=== PATIENT | male | born 1950 | race Caucasian/White ===

== ENCOUNTER 2023-12-28 07:51 | Inpatient (IN) | payer MEDICARE, BC ==
[2023-12-28] MEDS ORDERED: LIDOCAINE 1% INJ 10MG/ML (20 ML MDV) ONE (12:17)
[2023-12-28] MEDS ORDERED: VERAPAMIL 2.5 MG/ML 2 ML AMP ONE (12:17)
[2023-12-28] MEDS ORDERED: HEPARIN SODIUM 1,000 UN/ML (10ML VL) ONE (12:17)
[2023-12-28] MEDS ORDERED: fentaNYL (PF) 50 MCG/ML 2 ML AMP ONE (12:17)
[2023-12-28] MEDS: LIDOCAINE 2% (PF) 20 MG/ML 5 ML VIAL SQ ONE (12:36)
[2023-12-28] MEDS: fentaNYL (PF) 50 MCG/1 ML VIAL IVP ONE (12:36)
[2023-12-28] MEDS: HEPARIN SODIUM 1,000 UN/ML (10ML VL) IVP ONE ×2 (12:40→12:52)
[2023-12-28] MEDS: MIDAZOLAM 2 MG/2 ML VIAL IVP ONE (12:54)
[2023-12-28] MEDS: TICAGRELOR 90 MG TAB PO ONE (12:57)
[2023-12-28] MEDS ORDERED: TICAGRELOR 90 MG TAB ONE (12:57)
[2023-12-28] MEDS: NITROGLYCERIN 1000MCG/10ML SYRINGE INTRACORON ONE (13:00)
[2023-12-28] MEDS: IOPAMIDOL-370 100ML BTL INTRATHECA ONE (13:21)
[2023-12-28] MEDS: SODIUM CHLORIDE 0.9% 1,000 ML IV ONE (13:29)
[2023-12-28] MEDS ORDERED: ZOLPIDEM 5 MG TAB PO PRN (13:50)
[2023-12-28] MEDS ORDERED: ATROPINE SULFATE 0.1 MG/ML 10ML SYRINGE IV PRN (13:50)
[2023-12-28] MEDS ORDERED: NITROGLYCERIN SL TABS 0.4 MG TAB SUBLINGUAL PRN (13:50)
[2023-12-28] MEDS ORDERED: RX INFO: IV CONTRAST WAS GIVEN 1 EACH MISC MISCELLANE PRN (13:50)
[2023-12-28] MEDS ORDERED: MAG HYDROX/AL HYDROX/SIMETH 30 ML CUP PO PRN (13:50)
--- NOTE | 2023-12-28 14:02 | P.CARDCATH ---
Date of Procedure: 12/28/23 Description of Procedure: Cardiac Catheterization: The patient is a 73-year-old male with a known history of chronic tobacco use, hypertension who presented to [facility] with symptoms of chest discomfort and evidence of non-STEMI. His baseline EKG showed left bundle branch block of unknown duration. Recommendations were made regarding cardiac catheterization, the risks and the complications were discussed with the patient who is in full understanding and agreement. 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 Using Xylocaine Anesthesia and modified Seldinger technique, a 6-[place] sheath was introduced in the right radial artery . Subsequently, selective coronary angiography was performed using a 5-[place] 3.5 bend Munira catheter. Multiple views of the coronary artery including hemiaxial views were obtained. The right Munira catheter was used to cross the aortic valve and LVEDP was calculated. PCI: After removing the catheter a 6 [place] CLS 3.5 guiding catheter was introduced into the system and after cannulating the left main 0.014 BMW J-wire was positioned in the distal left circumflex. Subsequently a 2.5 x 12 mm trek balloon was advanced and 2 inflations at 8 josesito were performed after removing the balloon a [place] eye IVUS catheter was introduced and imaging were obtained that revealed a noncalcified lesion with a landing zone of 3 mm in diameter. After removing the catheter a 3.0 x 18 mm Xience esvin point stent was advanced and deployed at 16 josesito. Repeat IVUS was performed and subsequently a 3.0 x 15 mm NC trek balloon was advanced and 1 inflation at 10 josesito was done. After removing the balloon and the wire images were obtained and revealed stable successful stenting. Following that, catheter and sheath were removed. He mostasis was obtained with deployment of vascular band . There was no immediate complication. Patient was returned to room in stable condition. Of note, the patient received a total of 6500 units of intravenous heparin as well as intra- arterial verapamil. He received a loading dose of Brilinta. He had chest discomfort and EKG changes that resolved at the end of the procedure. His ACT was monitored. Findings: Fluoroscopy: Severe calcification of the LAD was noted Left main: This is a short size vessel, bifurcating into LAD and left circumflex, left main has no obstructive disease. LAD: This is a large size vessel reaching to the apex, giving rise to a small diagonal branch proximally. The LAD proximally has 20 to 30% plaque. In the midsegment has a 50% plaque, the diagonal branch has diffuse intimal disease with a area of stenosis up to 90% but it is of small caliber. Left circumflex: This is a large dominant vessel, giving rise to 2 obtuse marginal branch and distally giving rise to a PDA and a PLV. The left circumflex in the distal segment has an 80% eccentric lesion. The second obtuse marginal branch has intimal disease of 40 to 50%. The rest of the vessel has no high-grade stenosis RCA: This is a small nondominant vessel giving rise to a large conus branch. The right coronary artery and mid segment after the takeoff of the acute marginal branch has a 90% stenosis, the vessel beyond that is small in caliber. Left Ventriculogram: Not performed Hemodynamics: There was no gradient across aortic valve, LVEDP was 18-20 mmHg Conclusion: 1. Calcified LAD 2. Severe stenosis in the distal left circumflex 3. Severe stenosis in a small nondominant RCA 4. Mild to moderate disease in the LAD with significant stenosis in the small diagonal branch 5. Successful stenting of the distal LAD with reduction of stenosis from 80% to 0%. Recommendations: The patient will continue on aspirin and Brilinta without any interruption for 1 year in addition to aggressive coronary risks modification, maintaining LDL below 70 mg/dL. The importance of smoking cessation was discussed with him and his family. The findings and the recommendations were discussed with the patient and the family and they were in full understanding and agreement. Duration of sedation is 42 minutes.
[2023-12-28] MEDS: METOPROLOL TARTRATE 25 MG TAB PO SCH (15:05)
[2023-12-28] MEDS: SODIUM CHLORIDE 0.9% 1,000 ML in EMPTY BAG 1 BAG IV SCH (15:06)
[2023-12-28] MEDS: lisinopriL 5 MG TAB PO SCH (21:24)
[2023-12-28] MEDS: ATORVASTATIN 80 MG TAB PO SCH (21:24)
[2023-12-28] MEDS: IPRATROPIUM-ALBUTEROL 3 ML NEB INHALATION SCH (21:24)
[2023-12-28] MEDS: TICAGRELOR 90 MG TAB PO SCH (21:24)
[2023-12-28 22:42] LABS: Chol/HDL Ratio 4.85 Ratio; LDL Cholesterol,Calculated 162.9 mg/dL (0.0-131.0); VLDL Calculation 17.26 mg/dL (5.00-40.00)
--- NOTE | 2023-12-29 00:41 | HP ---
HISTORY AND PHYSICAL HISTORY OF PRESENT ILLNESS: A 73-year-old white male came into the hospital, transferred from [facility] with positive STEMI. He was found to have on cardiac catheterization 3-vessel obstruction, for which the LAD was fixed with a stent. The other two will be watched and treated medically with Brilinta and aspirin for a year, atorvastatin. Hypertension controlled. Smoke cessation, etc. PAST MEDICAL HISTORY: He has not seen a doctor in years. Apparently, he used to take 2 medicines at home normally being in amlodipine. SOCIAL HISTORY: A pack a day for 50 years. PHYSICAL EXAMINATION: VITAL SIGNS: Reviewed. CARDIOVASCULAR: S1, S2. LUNGS: Transmitted upper sounds. GI: Soft. HEMATOLOGIC: Negative Homans. ASSESSMENT: He has coronary artery disease, status post stent multiple, severe chronic obstructive pulmonary disease, nicotine addiction, gastroesophageal reflux disease. Prognosis guarded. Risk factor modifications. He will be sent home on medications tomorrow probably if he does well overnight. Prognosis guarded. MMODL / IJN: [id number] /
[2023-12-29] MEDS: ASPIRIN 81 MG PO SCH (08:04)
--- NOTE | 2023-12-29 11:28 | CA ---
Transthoracic Echo Report Name: Francisco Nj Age: 73 Gender: M : 1950 Exam Date: 12/29/2023 09:34 Exam Location: [facility] Ht (in): 67 Wt (lb): 138 Ordering Physician: Aimee Cabral MD ([id number]) Attending/Referring Phys: Compound Worker Lorraine Babin RDCS Procedure CPT: Indications: PR Cardiac Hx: Technical Quality: Good Contrast 1: Total Dose (mL): Contrast 2: Total Dose (mL): MEASUREMENTS (Male / Female) Normal Values 2D ECHO LV Diastolic Diameter PLAX 3.9 cm 4.2 - 5.9 / 3.9 - 5.3 cm LV Systolic Diameter PLAX 3.3 cm IVS Diastolic Thickness 0.8 cm 0.6 - 1.0 / 0.6 - 0.9 cm LVPW Diastolic Thickness 1.0 cm 0.6 - 1.0 / 0.6 - 0.9 cm LV Relative Wall Thickness 0.5 RV Internal Dim ED PLAX 2.4 cm LVOT Diameter 2.0 cm Aortic Root Diameter 3.0 cm LV Diastolic Volume MOD BP 117.2 cm??? 67 - 155 / 56 - 104 cm??? LV Systolic Volume MOD BP 75.4 cm??? 22 - 58 / 19 - 49 cm??? LV Ejection Fraction MOD BP 35.7 % >= 55 % LV Cardiac Index MOD BP 1580.1 cm???/min???m??? LV Diastolic Volume MOD 4C 108.6 cm??? LV Systolic Volume MOD 4C 82.5 cm??? LV Ejection Fraction MOD 4C 24.0 % LV Cardiac Index MOD 4C 984.2 cm???/min???m??? LV Diastolic Length 4C 9.0 cm LV Systolic Length 4C 8.2 cm LV Diastolic Volume MOD 2C 117.9 cm??? LV Systolic Volume MOD 2C 67.9 cm??? LV Ejection Fraction MOD 2C 42.4 % LV Cardiac Index MOD 2C 1889.7 cm???/min???m??? LV Diastolic Length 2C 9.7 cm LV Systolic Length 2C 8.3 cm DOPPLER AV Peak Velocity 120.2 cm/s AV Peak Gradient 5.8 mmHg AV Mean Velocity 95.7 cm/s AV Mean Gradient 3.9 mmHg AV Velocity Time Integral 25.8 cm LVOT Peak Velocity 95.4 cm/s LVOT Peak Gradient 3.6 mmHg LVOT Velocity Time Integral 18.7 cm LVOT Stroke Volume 56.6 cm??? LVOT Stroke Volume Index 32.8 ml/m??? LVOT Cardiac Index 2140.5 cm???/min???m??? AV Area Cont Eq vti 2.2 cm??? AV Area Cont Eq pk 2.4 cm??? Mitral E Point Velocity 87.7 cm/s Mitral A Point Velocity 100.1 cm/s Mitral E to A Ratio 0.9 MV Deceleration Time 212.3 ms MV E' Velocity 5.1 cm/s Mitral E to MV E' Ratio 17.3 FINDINGS Left Ventricle Left ventricular ejection fraction is estimated at 40-45 % with regional variability. Moderately increased left ventricular systolic volume. Moderately decreased left ventricular ejection fraction. Left ventricular wall thickness normal. Left ventricular cavity size normal. Right Ventricle Normal right ventricular size and function. Unable to estimate the right ventricular systolic pressure. Right Atrium Normal right atrial size. Left Atrium Normal left atrial size. Mitral Valve Mitral valve thickened. Mild mitral annular calcification. No evidence for mitral valve prolapse. No mitral stenosis. Mild to moderate mitral regurgitation. Aortic Valve Aortic valve not well visualized. No aortic stenosis. No aortic regurgitation. Tricuspid Valve Structurally normal tricuspid valve. No tricuspid stenosis. Trace tricuspid regurgitation. Pulmonic Valve Pulmonic valve not well visualized. No pulmonic stenosis. No pulmonic regurgitation. Pericardium No pericardial effusion. Aorta Aortic annulus normal. Ascending aorta not well visualized. CONCLUSIONS Mildly impaired LV function was elevated between 40-45% [id number] mitral regurgitation Previewed by: Dr. Erick Oquendo MD (Electronically Signed) Final Date: 29 Dec 2023 11:27
[2023-12-29 11:53] LABS: African American GFR (CKD) 85 (>60 ml/min/1.73 sqM); Anion Gap 4 mmol/L; Blood Urea Nitrogen 25 mg/dL (9-20); Calcium 8.5 mg/dL (8.4-10.2); Carbon Dioxide 23 mmol/L (22-30); Chloride 110 mmol/L (98-107); Glucose 115 mg/dL (74-99); Non-African American GFR(CKD) 73 (>60 ml/min/1.73 sqM); Potassium 3.9 mmol/L (3.5-5.1); Sodium 137 mmol/L (137-145)
--- NOTE | 2023-12-29 16:13 | P.PN ---
Subjective HISTORY OF PRESENTING ILLNESS Patient is a pleasant 73-year-old male with history of tobacco abuse, hypertension who presented to [facility] with non-STEMI and left bundle branch block and therefore underwent urgent heart catheterization yesterday. Patient was found to have triple-vessel disease with nondominant RCA, distal circumflex disease, calcified LAD 80% status post PCI of LAD. He currently feels much better and denies any further chest pain or pressure. Echocardiogram performed which showed EF 40-45%. He is interested in stopping smoking. PHYSICAL EXAMINATION Vital signs reviewed. CONSTITUTIONAL: No apparent distress. HEENT: Head is normocephalic. Pupils are equal, round. Sclerae anicteric. Mucous membranes of the mouth are moist. No JVD. No carotid bruit. CHEST EXAMINATION: Lungs are clear to auscultation. No chest wall tenderness is noted on palpation or with deep breathing. HEART EXAMINATION: Regular rate and rhythm. S1, S2 heard. No murmurs, gallops or rub. ABDOMEN: Soft, nontender. Positive bowel sounds. EXTREMITIES: 2+ peripheral pulses, no lower extremity edema and no calf tenderness. NEUROLOGIC EXAMINATION: Patient is awake, alert and oriented x3. ASSESSMENT 1. Non-STEMI status post PCI of LAD 2. Residual nondominant RCA disease, distal circumflex disease 3. Hypertension 4. Ischemic cardiomyopathy EF 40-45% 5. Tobacco abuse PLAN Continue with dual antiplatelets and cholesterol regimen. Metoprolol and lisinopril and optimize heart failure regimen as able. We will add Aldactone 12.5 mg daily. Hopefully EF will improve after his PCI. Likely discharge within 24 hours if stable. Objective - Vital Signs Vital signs: Vital Signs Temp 97.4 F L 12/29/23 08:06 Pulse 56 L 12/29/23 12:02 Resp 18 12/29/23 12:02 BP 125/56 12/29/23 12:02 Pulse Ox 97 12/29/23 12:02 FiO2 Intake & Output 12/28/23 12/29/23 12/29/23 18:59 06:59 18:59 Intake Total 790 390 Output Total 350 200 Balance 440 190 Weight 63 kg Intake: IV 310 40 Invasive Line 1 20 Invasive Line 2 10 20 Oral 480 350 Output: Urine 350 200 Other: Voiding Method Urinal Toilet Toilet Urinal Urinal # Voids 2 # Bowel Movements 0 - Labs CBC & Chem 7: 12/29/23 10:59 Labs: Abnormal Lab Results - Last 24 Hours (Table) 12/28/23 12/29/23 Range/Units 15:22 10:59 Chloride 110 H (98-107) mmol/L BUN 25 H (9-20) mg/dL Glucose 115 H (74-99) mg/dL Cholesterol 227.00 H (0.00-200.00) mg/dL LDL Cholesterol, Calc 162.9 H (0.0-131.0) mg/dL
[2023-12-29 16:51] VITALS: BMI 21.7
[2023-12-29] MEDS: SPIRONOLACTONE 25 MG TAB PO SCH (16:54)
--- NOTE | 2023-12-30 08:30 | PN ---
PROGRESS NOTE SUBJECTIVE: The patient is doing better today. Cardiology wants to keep him one more night. Prognosis guarded. OBJECTIVE: CARDIOVASCULAR: S1, S2. LUNGS: Decreased breath sounds x4. PSYCH: Fair mood and affect. NEUROLOGIC: Cranial nerves intact. VITAL SIGNS: Temp 98.1, blood pressure 123/61, O2 sat 95 on room air, respiratory rate 16 to 18. He is status post PTCA, mildly decreased ejection fraction, also preserved systolic and diastolic CHF, acute hypoxemic respiratory failure. Continue current treatments, possible discharge home tomorrow. Please see further orders. MMODL / IJN: [id number] /
[2023-12-30 09:01] VITALS: TEMP 97.9
[2023-12-30] MEDS: NICOTINE 21MG/24HR PATCH TRANSDERM SCH (11:14)
[2023-12-30 11:25] VITALS: BP 117/58; PULSE 69; RESP 16
--- NOTE | 2023-12-30 16:15 | P.PN ---
Subjective Progress Note Date: 12/30/23 HISTORY OF PRESENTING ILLNESS Patient is a pleasant 73-year-old male with history of tobacco abuse, hypert ension who presented to [facility] with non-STEMI and left bundle branch block and therefore underwent urgent heart catheterization yesterday. Patient was found to have triple-vessel disease with nondominant RCA, distal circumflex disease, calcified LAD 80% status post PCI of LAD. He currently feels much better and denies any further chest pain or pressure. Echocardiogram performed which showed EF 40-45%. He is interested in stopping smoking. 12/29 Patient denies any new concerns. He is hoping to go home today. He did have a spell of dyspnea but seems to have resolved. Blood pressure 117/58, heart rate 69, pulse ox 95% on room air. PHYSICAL EXAMINATION Vital signs reviewed. CONSTITUTIONAL: No apparent distress. HEENT: Head is normocephalic. Pupils are equal, round. Sclerae anicteric. Mucous membranes of the mouth are moist. No JVD. No carotid bruit. CHEST EXAMINATION: Lungs are clear to auscultation. No chest wall tenderness is noted on palpation or with deep breathing. HEART EXAMINATION: Regular rate and rhythm. S1, S2 heard. No murmurs, gallops or rub. ABDOMEN: Soft, nontender. Positive bowel sounds. EXTREMITIES: 2+ peripheral pulses, no lower extremity edema and no calf tenderness. NEUROLOGIC EXAMINATION: Patient is awake, alert and oriented x3. ASSESSMENT 1. Non-STEMI status post PCI of LAD 2. Residual nondominant RCA disease, distal circumflex disease 3. Hypertension 4. Ischemic cardiomyopathy EF 40-45% 5. Tobacco abuse PLAN Continue with dual antiplatelets and cholesterol regimen. Metoprolol, Aldactone, and lisinopril and optimize heart failure regimen as able. Patient is cleared for discharge from cardiology and may follow-up in the office in 1 to 2 weeks. Nurse practitioner note has been reviewed, I agree with documented findings and plan of care. Patient was seen and examined. Objective - Vital Signs Vital signs: Vital Signs Temp 97.9 F 12/30/23 08:26 Pulse 69 12/30/23 11:15 Resp 16 12/30/23 11:15 BP 117/58 12/30/23 11:15 Pulse Ox 95 12/30/23 11:15 FiO2 Intake & Output 05/02/1512/30/23 12/30/23 18:59 06:59 18:59 Intake Total 1170 40 158 Output Total 200 Balance 970 40 158 Weight 63 kg Intake: IV 40 40 40 Invasive Line 1 20 20 20 Invasive Line 2 20 20 20 Oral 1130 118 Output: Urine 200 Other: Voiding Method Toilet Toilet Toilet Urinal Urinal Urinal # Voids 2 1 # Bowel Movements 0 - Labs CBC & Chem 7: 12/29/23 10:59
--- NOTE | 2024-01-05 22:30 | CDI ---
Documentation Clarification Form Date: 01/05/2024 10:25:31 PM From: [place] Phone: Admit Date: 12/28/2023 12:23:00 PM Patient Name: Francisco Nj Visit Number: [id number] Discharge Date: 12/30/2023 03:09:00 PM ATTENTION: The Clinical Documentation Specialists (CDI) and [facility] Coding Staff appreciate your assistance in clarifying documentation. Please respond to the clarification below the line at the bottom and electronically sign. The CDI & [facility] Coding staff will review the response and follow-up if needed. Please note: Queries are made part of the Legal Health Record. If you have any questions, please contact the author of this message via ITS. Dr. Laureano Dalton Acute hypoxic Respiratory Failure is documented 12/29/23 Progress notes which may lack sufficient clinical evidence/support in the medical record. Additional clarification is requested. Patient history/risk factors: NSTEMI underwent PTCA Clinical Indicators: O2 sat 95 on room air, respiratory rate 16 to 18.pulse ox 95% LUNGS: Decreased breath sounds x4. Treatment: remained on room air After work up and study, please clarify which diagnosis is most appropriate? [ ] [specify type] Respiratory Failure ruled out [ ] [specify type] Respiratory Failure is a valid diagnosis as evidenced by the following: [ ] Respiratory Insufficiency [ ] Unable to determine [ ] Other, please specify MTDD
--- NOTE | 2024-01-07 23:50 | PN ---
PROGRESS NOTE Respiratory failure, acute on chronic. MMODL / IJN: [id number] /
== END 2023-12-30 15:09 | disposition home or self-care (01) | DRG 321 ==
LOC: 3SCARD 12:23
PROVIDERS: ADMIT Family Medicine; ATTEND Family Medicine
PROC: B240ZZ3 Ultrasonography of Single Coronary Artery, Intravascular (ICD-10-PCS; 2023-12-28)
PROC: 027034Z Dilation of Coronary Artery, One Artery with Drug-eluting Intraluminal Device, Percutaneous Approach (ICD-10-PCS; principal; 2023-12-28 12:00)
PROC: 4A023N7 Measurement of Cardiac Sampling and Pressure, Left Heart, Percutaneous Approach (ICD-10-PCS; 2023-12-28 12:00)
PROC: B2111ZZ Fluoroscopy of Multiple Coronary Arteries using Low Osmolar Contrast (ICD-10-PCS; 2023-12-28 12:00)
DX: I21.4 Non-ST elevation (NSTEMI) myocardial infarction (principal); J96.21 Acute and chronic respiratory failure with hypoxia; I50.40 Unspecified combined systolic (congestive) and diastolic (congestive) heart failure; I25.5 Ischemic cardiomyopathy; I44.7 Left bundle-branch block, unspecified; I25.10 Atherosclerotic heart disease of native coronary artery without angina pectoris; J44.9 Chronic obstructive pulmonary disease, unspecified; K21.9 Gastro-esophageal reflux disease without esophagitis; I11.0 Hypertensive heart disease with heart failure; I08.1 Rheumatic disorders of both mitral and tricuspid valves; Z95.5 Presence of coronary angioplasty implant and graft; F17.210 Nicotine dependence, cigarettes, uncomplicated
CPT/HCPCS: 80048; 80061; 92978; 93306; 93458; 94640; 94760

== ENCOUNTER → 2024-09-25 | Outpatient (CLI) | payer MEDICARE, BC ==
[2024-09-25 13:22] LABS: ALT 25 U/L (10-49); AST 27 U/L (14-35); Albumin 4.2 g/dL (3.8-4.9); Albumin/Globulin Ratio 1.31 Ratio (1.60-3.17); Alkaline Phosphatase 152 U/L (41-126); BUN/Creat Ratio 19.73 Ratio (12.00-20.00); Blood Urea Nitrogen 29.6 mg/dL (9.0-27.0); Calcium 8.9 mg/dL (8.7-10.3); Carbon Dioxide 20.3 mmol/L (21.6-31.8); Chloride 108 mmol/L (96-109); Chol/HDL Ratio 5.17 Ratio; Globulin 3.2 g/dL (1.6-3.3); Glucose 102 mg/dL (70-110); LDL Cholesterol,Calculated 101.4 mg/dL (0.0-131.0); Potassium 4.8 mmol/L (3.5-5.5); Sodium 141 mmol/L (135-145); Total Bilirubin 0.4 mg/dL (0.3-1.2); Total Protein 7.4 g/dL (6.2-8.2)
== END | disposition home or self-care (01) ==
LOC: LABWHC1 09:09
PROVIDERS: ATTEND Internal Medicine Interventional Cardiology
DX: I10 Essential (primary) hypertension (principal); E78.2 Mixed hyperlipidemia
CPT/HCPCS: 36415; 80053; 80061

== ENCOUNTER → 2024-11-22 | Outpatient (CLI) | payer MEDICARE, BC ==
[2024-11-22 14:56] LABS: HCT 39.9 % (39.6-50.0); HGB 12.5 g/dL (13.0-17.0); MCH 28.1 pg (27.0-32.0); MCHC 31.3 g/dL (32.0-37.0); MCV 89.7 FL (80.0-97.0); Mean Platelet Volume 9.2 FL (9.5-12.2); NRBC Per 100 WBC 0 X 10*3/uL (0.00-0.01); Platelet Count 313 X 10*3/uL (140-440); RBC 4.45 X 10*6/uL (4.40-5.60); RDW 15.1 % (11.5-14.5); WBC 8.75 X 10*3/uL (4.50-10.00)
[2024-11-22 15:16] LABS: Blood Urea Nitrogen 22.2 mg/dL (9.0-27.0); Carbon Dioxide 20.6 mmol/L (21.6-31.8); Chloride 107 mmol/L (96-109); Potassium 4.6 mmol/L (3.5-5.5); Sodium 139 mmol/L (135-145)
== END | disposition home or self-care (01) ==
LOC: LABPAT 09:35
PROVIDERS: ATTEND Internal Medicine Interventional Cardiology
DX: Z01.812 Encounter for preprocedural laboratory examination (principal); I25.118 Atherosclerotic heart disease of native coronary artery with other forms of angina pectoris; R06.02 Shortness of breath
CPT/HCPCS: 80051; 82565; 84520; 85027

== ENCOUNTER 2024-11-30 07:10 | Day surgery (SDC) | payer MEDICARE, BC ==
[~2024-11-30 07:10] MED LIST: ALPRAZolam 0.25 MG TAB PO PRN; NITROGLYCERIN SL TABS 0.4 MG TAB SUBLINGUAL PRN
[2024-11-30] MEDS: SODIUM CHLORIDE 0.9% 1,000 ML in EMPTY BAG 1 BAG IV SCH (07:32)
[2024-11-30] MEDS: ASPIRIN 325 MG TAB PO ONE (07:32)
[2024-11-30] MEDS: ALPRAZolam 0.5 MG TAB PO PRN (07:33)
[2024-11-30] MEDS: IV FLUID CONTINUATION 1,000 ML IV ONE (07:39)
[2024-11-30 07:45] VITALS: RESP 16; TEMP 97
[2024-11-30] MEDS: ISOSORBIDE MONONITRATE ER 30 MG TAB.ER.24H PO STA (07:52)
[2024-11-30] MEDS: HEPARIN SODIUM,PORCINE 10,000 UNIT in SODIUM CHLORIDE 0.9% 1,000 ML IRRIGATION PRN (09:15)
[2024-11-30] MEDS: HEPARIN SODIUM,PORCINE (1 ML) 2,500 UNIT in SODIUM CHLORIDE 0.9% 250 ML IRRIGATION PRN (09:15)
[2024-11-30] MEDS: fentaNYL (PF) 50 MCG/1 ML VIAL IVP ONE (09:31)
[2024-11-30] MEDS: LIDOCAINE 1% INJ 10MG/ML (20 ML MDV) SQ ONE (09:35)
[2024-11-30] MEDS: VERAPAMIL SYRINGE (5 MG/10 ML) INTRAARTER ONE (09:37)
[2024-11-30] MEDS: HEPARIN SODIUM 1,000 UN/ML (10ML VL) IV ONE (09:40)
[2024-11-30] MEDS: IOPAMIDOL-370 100ML BTL INJ ONE (09:46)
[2024-11-30] MEDS ORDERED: RX INFO: IV CONTRAST WAS GIVEN 1 EACH MISC MISCELLANE PRN (10:03)
--- NOTE | 2024-11-30 10:10 | P.CARDCATH ---
Date of Procedure: 11/30/24 Description of Procedure: Cardiac Catheterization: The patient is a 74-year-old male with a known history of CAD, hypertension and hyperlipidemia status post stenting who has been complaining of progressive dyspnea and episode of chest discomfort and had a drop in his ejection fraction with a fixed defect on his MPI. Recommendations were made regarding cardiac catheterization, the risks and the complications were discussed with the patient who is in full understanding and agreement. 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 Using Xylocaine Anesthesia and modified Seldinger technique, a 6-[place] sheath was introduced in the right radial artery . Subsequently, selective coronary angiography was performed using a 5-[place] 3.5 bend Munira catheter. Multiple views of the coronary artery including hemiaxial views were obtained. The left Munira catheter was used to cross the aortic valve and LVEDP was calculated. Following that, catheter and sheath were removed. Hemostasis was obtained with deployment of vascular band . There was no immediate complication. Patient was returned to room in stable condition. Of note, the patient received a total of 5000 units of intravenous heparin as well as intra-arterial verapamil. Findings: Fluoroscopy: Calcification of the LAD and left circumflex was noted Left main: This is a short size vessel, bifurcating into LAD and left circumflex, left main has no obstructive disease. LAD: This is a large size vessel, reaching to the apex with a wraparound apex segment giving rise to small diagonal branch. The LAD has 30 to 40% plaque in the midsegment with no progression compared to 202. Left circumflex: This is a dominant vessel, large in caliber, bifurcating distally to PDA and PLV. It gives rise to a large proximal first diagonal branch that has a tubular lesion of 50 to 60% with no progression compared to 2024. The stented segment in the distal left circumflex is patent with no evidence of in-stent restenosis. Beyond that the vessel is small in caliber, diffusely diseased with area of stenosis up to 70% involving the left PLV. RCA: This is a small nondominant vessel that has diffuse intimal disease of 50 to 70% throughout its course Left Ventriculogram: Not performed Hemodynamics: There was no gradient across aortic valve, LVEDP was 16-20 mmHg Conclusion: 1. Calcified coronary arteries 2. Patent stent in the left circumflex 3. Moderate disease in the LAD and left circumflex with no progression compared to 2023 4. Left dominance Recommendations: I have recommended to continue medical therapy with the aggressive coronary risks modification initiated. I see no significant progression of disease compared with the prior testing. The findings and the recommendations were discussed with the patient and the family and they were in full understanding and agreement. Duration of sedation is 14 minutes.
[2024-11-30] MEDS ORDERED: SODIUM CHLORIDE 0.9% 1,000 ML IV SCH (10:15)
[2024-11-30 13:23] VITALS: BP 141/72; PULSE 78
[2024-11-30] MEDS ORDERED: TICAGRELOR 90 MG TAB PO SCH (21:00)
[2024-11-30] MEDS ORDERED: METOPROLOL TARTRATE 25 MG TAB PO SCH (21:00)
[2024-12-01] MEDS ORDERED: ATORVASTATIN 80 MG TAB PO SCH (09:00)
[2024-12-01] MEDS ORDERED: ISOSORBIDE MONONITRATE ER 30 MG TAB.ER.24H PO SCH (09:00)
[2024-12-01] MEDS ORDERED: LOSARTAN 50 MG TAB PO SCH (09:00)
[2024-12-01] MEDS ORDERED: EZETIMIBE 10 MG TAB PO SCH (09:00)
[2024-12-01] MEDS ORDERED: ASPIRIN 81 MG PO SCH (09:00)
== END 2024-11-30 13:24 | disposition home or self-care (01) ==
LOC: CATHCVL 07:10
PROVIDERS: ATTEND Internal Medicine Interventional Cardiology
DX: I25.10 Atherosclerotic heart disease of native coronary artery without angina pectoris (principal); I10 Essential (primary) hypertension; E78.2 Mixed hyperlipidemia; I25.5 Ischemic cardiomyopathy; I73.9 Peripheral vascular disease, unspecified; Z95.5 Presence of coronary angioplasty implant and graft; Z79.02 Long term (current) use of antithrombotics/antiplatelets; Z79.899 Other long term (current) drug therapy; Z72.0 Tobacco use
CPT/HCPCS: 93458; 99152; C1894; C1769; J1644 ×3; J2003; Q9967; J3010

== ENCOUNTER → 2025-02-07 | Outpatient (CLI) | payer MEDICARE, BC ==
[2025-02-07 16:36] LABS: ALT 23 U/L (10-49); AST 25 U/L (14-35); Albumin 4.2 g/dL (3.8-4.9); Albumin/Globulin Ratio 1.27 Ratio (1.60-3.17); Alkaline Phosphatase 140 U/L (41-126); BUN/Creat Ratio 11.78 Ratio (12.00-20.00); Blood Urea Nitrogen 21.2 mg/dL (9.0-27.0); Calcium 8.9 mg/dL (8.7-10.3); Carbon Dioxide 17.6 mmol/L (21.6-31.8); Chloride 108 mmol/L (96-109); Chol/HDL Ratio 3.21 Ratio; Globulin 3.3 g/dL (1.6-3.3); Glucose 97 mg/dL (70-110); LDL Cholesterol,Calculated 53.1 mg/dL (0.0-131.0); Sodium 139 mmol/L (135-145); Total Bilirubin 0.3 mg/dL (0.3-1.2); Total Protein 7.5 g/dL (6.2-8.2)
[2025-02-07 17:02] LABS: NT-Pro-B-Type Natriuretic Pept 619 pg/mL (0-450)
== END | disposition home or self-care (01) ==
LOC: LABWHC1 10:07
PROVIDERS: ATTEND Internal Medicine Interventional Cardiology
DX: E78.2 Mixed hyperlipidemia (principal); I25.5 Ischemic cardiomyopathy
CPT/HCPCS: 36415; 80053; 80061; 83880